=== PATIENT | male | born 1950 | race Caucasian/White ===

== ENCOUNTER 2023-08-11 16:52 | Inpatient (IN) | payer MEDICARE, SELFPAY ==
[2023-08-11 14:09] VITALS: BMI 21.8
[2023-08-11 14:11] VITALS: BP 162/89
--- NOTE | 2023-08-11 14:30 | ED.GENMED ---
History of Present Illness
General
Chief Complaint: Fall
Source: patient
Time Seen by Provider: 08/11/23 14:14
Travel History
Have you had any contact with someone who has COVID-19?: No
Do you have any symptoms of coronavirus? Fever > 100 degrees, chills, cough, shortness of breath, sore throat, loss of taste or smell, muscle aches, or headache?: No
History of Present Illness
History of Present Illness:
This patient is a 73-year-old male who states that he suffered a fall on Sunday, without preceding symptoms, a mechanical trip and fall. He landed on his left side and noted discomfort at the shoulder hip knee and ankle area on the left side. He
had trouble getting up on his own, and needed to wait until his aide arrived for him to be able to get up. He did not want to go to the hospital because he says 'I am stubborn'. He says that over the next few days he just 'took it easy', and
eventually his aches went away and he was able to get up and walk around as usual. Patient has a history of a CVA and typically uses a cane. Last night, patient was laying on the couch and slipped out landing on the floor. He estimates this was
approximately 1 AM. He was unable to get up on his own and lay on the floor all night until just prior to arrival when his brother was able to come to the house and alert medics. Patient states that he is very hungry. He denies headache. When
asked about neck pain he says it feels a little 'strained' from him moving about. He also notes discomfort at the left hip and thigh area. He denies visual changes, numbness, tingling, new weakness, chest pain, shortness of breath, nausea,
vomiting, abdominal pain, back pain. He states that he last urinated and defecated yesterday without change in color, blood. Patient drinks alcohol every day estimates at least 4-5 drinks of [place] whiskey, while he was on the floor he was able to
roll over and reach for the bottle and continue drinking and states that his last drink was this morning.
Past History
Past History
ED Past Medical History: HTN, Hypercholesterolemia and Other (CVA with residual left-sided weakness, numb tongue and mild left facial)
Patient has exhibited threatening behavior?: No
Social History
Tobacco: Smoker
Alcohol: Daily
Drug: None
Living: alone
Phy Exam
Physical Exam
Physical Exam:
GENERAL: Alert , in no apparent distress
EYE: pupils equal and reactive, no photophobia, EOMI
NECK: Supple, no significant adenopathy, no specific midline tenderness, trachea midline.
ENT: o/p clr, mm dry, no signs of head or facial injury, no jordan, no raccoon
CARDIAC: Regular rate and rhythm .
LUNGS: Clear breath sounds bilaterally, no acute respiratory distress, no wheezes/rales/rhonchi
ABDOMEN: Soft, without focal tenderness, no r/g, no cvat
NEUROLOGICAL: Alert and oriented, no focal neuro deficits but for residual left-sided weakness particularly left leg and mild left facial droop, fully oriented and making jokes with staff
SKIN: Warm and dry, skin intact.
MUSCULOSKELETAL: 1+ bilateral lower extremity edema, well perfused. There is pain in L inguinal area when ranging L hip, no ttp at hip, not shortened/externally rotated
PSYCH: Normal and appropriate interaction.
Course
Orders/Labs/Results
Orders:
Orders
08/11/23 14:19
Electrocardiogram (*1) Urgent
Reason for Study: Tachycardia
EKG- Treatment ONCE
08/11/23 14:30
Troponin I Urgent
08/11/23 14:32
Alcohol Urgent
CMP [Comprehensive Metabolic Panel] Urgent
CPK [Creatine Phosphokinase] Urgent
Complete Blood Count/With Diff Urgent
Folate Urgent
Comment: ADD ON
Magnesium Urgent
Vitamin B12 Urgent
08/11/23 14:35
CT Cervical Spine W/o Iv Contr Urgent
Comment:
Reason For Exam: fall
CT Head W/o Iv Contrast Stat
Comment:
Reason For Exam: fall
Cervical Collar- Treatment ONCE
Collar Type: Hard Cervical Collar
Hip, Left 2-3 Views [CR Hip - LT w/wo Pel 2-3 Vw*] Urgent
Comment:
Reason For Exam: pain, fall
Include a pelvis x-ray?: Yes
08/11/23 14:36
0.9% Sodium Chloride 500 ml [Nss] 500 ml IV BOLUS
08/11/23 14:37
Cardiac Monitoring- Treatment ONCE
Pulse Ox/cont/shift [RESP] Urgent
Quantity: 1
08/11/23 14:47
Lactic Acid Q4H
Comment: CANCEL 2nd LACTIC ACID IF 1st LACTIC ACID IS LESS THAN 2
Blood Culture Q30M
SPEEDY Source: Blood/Venous
Specimen Description:
08/11/23 15:34
Blood Culture Q30M
SPEEDY Source: Blood/Venous
Specimen Description:
08/11/23 16:04
Urinalysis Reflex To Culture Urgent
Date Specimen was Collected: 08/11/23
Time Specimen was Collected: 16:02
Urine Microscopic Reflex Cult Urgent
Urine Culture Urgent
SPEEDY Source: U
Specimen Description:
Date Specimen was Collected: 08/11/23
Time Specimen was Collected: 16:02
08/11/23 16:16
CT Lower Ext W/o Iv Cont Lt Urgent
Comment: MODIFIED TO CORRECT ORDER W/O CONTRAST
Reason For Exam: please assess L hip/acetabular area only
08/11/23 16:33
Add On- LAB Urgent
Tests Added?: mag , b12 ,folate
Acetaminophen [Tylenol] 650 mg PO NOW STA
08/11/23 16:34
Admit/Transfer Patient As Directed
Co-Sign Provider:
Level of Care: Inpatient admission
Assign to:: Telemetry
Physician / Group: idania mota
Diagnosis: fall w/ L acetabelum/pubic rami fx, etoh abuse
Reason for Telemetry: Arrhythmia
Date to Stop Telemetry: 08/14/23
Time to Stop Telemetry: 11:00
Reason for Hospitalization: fall w/ L acetabelum/pubic rami fx, etoh abuse
Expected length of stay greater than two midnights?: Yes
ELOS- Estimated Length of Stay in days: 4
I certify the patient meets the requirements for IP care: Yes
Code Status As Directed
Resuscitation Status: Do not resuscitate
Reached after discussion with pt or family/Healthcare POA: Yes
DNR Bracelet Application ONCE
08/11/23 16:38
ORTHOPEDIC CONSULT Routine
Consulting Provider: Richar Reyes
Was physician already notified: Yes
Reason for consult: left acetabelum/pubic rami fx
08/11/23 18:37
0.9% Sodium Chloride 1000 ml [Nss] 1,000 ml IV 60 mls/hr
0.9% Sodium Chloride [Nss (Preservative Free)] See Protocol IV PRN PRN
FOLic ACID [Folvite] 1 mg 0.9% Sodium Chloride 50 ml [Nss] 50 ml IV DAILYPRN
Lorazepam [Ativan] 1 mg IV Q1HPRN PRN
Lorazepam [Ativan] 1 mg PO Q2HPRN PRN
Lorazepam [Ativan] 2 mg IV Q1HPRN PRN
Nicotine [Nicoderm Transdermal] 21 mg TRANSDERM DAILY
Ondansetron Injectable [Zofran] 4 mg IV Q6HPRN PRN
Oxycodone [Roxicodone] 5 mg PO Q4HPRN PRN
08/11/23 18:37
Case Management Consult Once
Case Management Consult: Other
Comment: Substance abuse counseling
DIETARY CONSULT Routine
Reason for Consult: Nutrition support, possible refeeding guidelines
Urinalysis Routine
Date Specimen was Collected: 08/12/23
Time Specimen was Collected: 03:10
Urine Drug Abuse Screen Routine
Date Specimen was Collected: 08/12/23
Time Specimen was Collected: 03:10
Activity As Directed
Activity Level: Bedrest
MSAS SCORE As Directed
MSAS Score 0-4: Repeat MSAS every 2 hours until 0-4 for three consecutive assessments, then every 4 hours x 48
hours.
MSAS Score 5-7: For MILD withdrawl symptoms. Repeat MSAS and RASS every 2 hours
MSAS Score 8-11: For MODERATE withdrawal symptoms. Repeat MSAS and RASS every 1 hour. Consider ICU or IMU
level of care.
MSAS Score > 11: For SEVERE withdrawal symptoms. Repeat MSAS and RASS every 1 hour. Notify provider, consider
ICU level of care.
MSAS Additional Instructions: If no improvement or no decrease in score from severe to moderate within 12
hours, consult psychiatry
MSAS Notify Provider: Notify provider if patient requires more than 10 mg of Lorazepam in eight hour period.
Pneumatic Compression Sleeves As Directed
Type: Knee high
Vital Signs As Directed
Frequency: Per unit guidelines
Ot Eval And Treat Routine
Pt Eval And Treat Routine
Activity Level: Bedrest
DX Deep Vein Thrombosis Video Routine
08/11/23 19:50
B-Hydroxybutyrate Urgent
GGTP Urgent
PTT Urgent
Phosphorus Urgent
Prothrombin Time Urgent
08/11/23 20:00
Acetaminophen [Tylenol] 650 mg PO Q4HPRN PRN
Sennosides [Senokot] 8.6 mg PO BID
08/12/23 00:00
Thiamine Injection 200 mg IV Q8
08/12/23 06:58
Complete Blood Count/With Diff IN AM
Comprehensive Metabolic Panel IN AM
08/12/23 08:00
FOLic ACID [Folvite] 1 mg PO DAILY
08/14/23 11:00
DC Protocol for Telemetry ONCE
08/14/23 20:00
Thiamine HCl [Vitamin B1] 100 mg PO BID
Abnormal Lab Results
08/11/23 08/11/23
14:32 16:04
WBC 11.2 H 10^3/uL
(4.8-10.8)
RBC 3.38 L 10^6/uL
(4.70-6.10)
Hgb 11.1 L g/dL
(13.0-18.0)
Hct 31.1 L %
(39.0-52.0)
MCH 32.8 H pg
(27.0-31.0)
Absolute Neuts (auto) 8.6 H 10^3/uL
(1.4-6.5)
Absolute Monos (auto) 1.0 H 10^3/uL
(0.1-0.6)
Neutrophils % 76.7 H %
(42.2-75.2)
Lymphocytes % 12.6 L %
(20.5-51.1)
Sodium 129 L mmol/L
(135-145)
Total Bilirubin 1.5 H mg/dl
(0.2-1.3)
Creatine Kinase 410 H U/L
(55-170)
Vitamin B12 209 L pg/ml
(239-931)
Urine Ketones 2+ A
(Negative)
Urine Bilirubin 1+ A
(Negative)
Urine Urobilinogen 2+ A
(Neg - 1+)
Leukocyte Esterase Rfl Trace A
(Negative)
Urine Bacteria (Reflex) Moderate A
(Negative)
08/11/23 14:32
08/11/23 14:32
Vital Signs
Initial and Last Documented VS:
Initial Vital Signs
Temp Pulse Resp BP Pulse Ox
98.8 F 114 18 162/89 99
08/11/23 14:11 08/11/23 14:11 08/11/23 14:11 08/11/23 14:11 08/11/23 14:11
Last Documented Vital Signs
Temp Pulse Resp BP Pulse Ox
99.4 F 114 16 136/74 94
08/12/23 23:27 08/12/23 23:27 08/12/23 23:27 08/12/23 23:27 08/12/23 23:27
*Critical Care Note
Total Time (30-74mins, 75-104mins- exclusive of procedures): Not Applicable
Update Note
Update Note:
Patient presents to the Emergency Department with __fall and unable to get up
Number and Complexity of Problems Addressed at the Encounter
� Chronic conditions affecting care:
� Acute Exacerbation and/or Progression of Chronic Illness:
� Differential Diagnosis includes: But not limited to closed head injury, neck fracture, rhabdomyolysis, dehydration, electrolyte disorder, UTI, etc. etc.
Amount and/or Complexity of Data to be Reviewed and Analyzed
� I performed an independent evaluation of and my interpretation is:
EKG: Read by me, sinus tachycardia, normal axis, no acute ischemia
CT:
Xrays: read by me and radiologist...inferior ramus and acetabular fx, head and neck ct read by rads nad
Laboratory Studies:sl wbc elevation, mild anemia (?of chronic dz), mild hypoNa (?related to aud?). No acidosis to suggest aka., etoh none. CPK only mildly elevated, does not fit criteria of dx of rhabdo.
Other:
� Review of other/old records reveals: Patient was admitted to the hospital with a CVA and was not a tPA candidate at that time, noted to have residual left-sided weakness
� Clinical information was obtained by an independent historian:
� Prescriptions/Medications Considered but not given:
� Further testing considered but not performed:
Risk of Complications and/or Morbidity or Mortality of Patient Management
� Social determinants of health affecting care:
� Discussion with other providers (PCP, Hospitalists, Consultants, etc):
� Escalation of care including admission/observation vs risk of discharge considered: Patient does not exhibit signs or symptoms of withdrawal at this time but will need to be closely monitored while in the hospital given his
history of heavy alcohol use daily. Acetabular fracture noted, case discussed with Dr. Reyes from [facility], I have alerted him that we will be admitting the patient to the hospitalist given his complexity of medical history.
ED Attending Note
-
Portions of this chart may have been created with voice recognition software.� Occasional wrong word or��sound alike� substitutions may have occurred due to the inherent limitations of voice recognition software.
Discharge Plan
Departure
Patient Disposition: Admit
Date of Disposition: 08/11/23
Time of Disposition: 15:57
Admit to: Telemetry
Admit to doctor: idania
Presentation/result/management discussed w/ accepting /DO: loni
Condition: Fair
Discharge Problem:
Acetabular fracture, Alcohol use disorder, Fracture of ramus of left pubis, Dehydration
Interventions
Interventions:
*Risk Screen - Suicide Last Done: 08/11/23 19:32
*General Assessment Last Done: 08/11/23 14:20
*Neglect/Abuse Screening Last Done: 08/11/23 14:20
ED- Fall Risk Assessment Last Done: 08/11/23 14:20
*Nursing Disposition Last Done: 08/11/23 18:29
ED-Musculoskeletal Assessment Last Done: 08/11/23 14:20
ED- Neurological Assessment Last Done: 08/11/23 15:37
ED-Skin Assessment Last Done: 08/11/23 14:20
Discharge Date and Time
Discharge Date/Time: 08/11/23 18:30
[2023-08-11 14:40] LABS: % Basophils 0.3 % (0-2); % Eosinophils 0.9 % (0-6); % Immature Granulocytes 0.4 % (0-0.5); % Lymphocytes 12.6 % (20.5-51.1); % Monocytes 9.1 % (1.7-9.3); % Neutrophils 76.7 % (42.2-75.2); Absolute Eosinophils 0.1 10^3/uL (0-0.7); Absolute Lymphocytes 1.4 10^3/uL (1.2-3.4); Absolute Neutrophils 8.6 10^3/uL (1.4-6.5); Hematocrit 31.1 % (39.0-52.0); Hemoglobin 11.1 g/dL (13.0-18.0); Mean Corp Hgb Conc. 35.7 g/dL (33.0-37.0); Mean Corpuscular Hgb 32.8 pg (27.0-31.0); Mean Platelet Volume 9.2 fL (7.4-10.4); Nucleated Red Blood Cells % 0 % (-); Platelet Count 360 10^3/uL (130-400); Red Blood Cell Count 3.38 10^6/uL (4.70-6.10); Red Cell Dist. Width 13.5 % (11.5-14.5); White Blood Cell Count 11.2 10^3/uL (4.8-10.8)
[2023-08-11 14:52] LABS: ALT (SGPT) 26 U/L (0-50); AST (SGOT) 54 U/L (17-59); Albumin 3.5 g/dl (3.5-5.0); Alcohol None Detected; Alkaline Phosphatase 93 U/L (38-126); Blood Urea Nitrogen 12 mg/dl (9-20); Calcium 8.9 mg/dl (8.4-10.2); Carbon Dioxide 22 mmol/L (22-30); Chloride 100 mmol/L (98-107); Creatine Phosphokinase 410 U/L (55-170); Estimated Creatinine Clearance 86 ml/min; Glucose 91 mg/dl (70-99); Potassium 3.9 mmol/L (3.5-5.1); Sodium 129 mmol/L (135-145); Total Bilirubin 1.5 mg/dl (0.2-1.3); Total Protein 6.3 g/dl (6.3-8.2); eGFR > 60.00
[2023-08-11 15:12] LABS: Lactic Acid 1.1 mmol/L (0.7-2.0)
[2023-08-11 15:25] LABS: Troponin I < 0.012 ng/ml
[2023-08-11 15:31] VITALS: BP 141/75
[2023-08-11] MEDS: NSS 500 IV (15:35)
[2023-08-11 16:00] VITALS: BP 151/81
--- NOTE | 2023-08-11 16:07 | HPS.HSE ---
Addendum entered and electronically signed by Justice Salas MD 08/12/23 11:38:
I saw and examined the patient.
The TRAY WORKER or PA's note was reviewed and I agree with the note.
Comment: 73-year-old male lives at home, history of alcohol abuse, CVA, hypertension, nicotine abuse, 5 drinks per day presents for left hip pain.� Patient had mechanical fall about 1 week ago while walking up the stairs.� Patient continued to walk,
baseline uses cane.� Patient had worsening pain that prompted hospital evaluation.� Last drink this morning, drinks Roni a sherry chintan daily, proxy 5 drinks per day as per patient.� Imaging showing fractures of the medial wall of the left
acetabulum and the left inferior pelvic ramus.� No head strike upon fall as per patient.� CT head done here no acute intracranial abnormality.� CVT's cervical spine unremarkable for acute pathology.� Patient tremorous and anxious upon examination.�
Heart rate 117, blood pressure 151/81.� Afebrile.� Evidence of hyponatremia on labs.� No urinary symptoms.
Plan�IV fluids, CIWA protocol, Ativan as needed.� Orthopedic consult.� PT/OT monitor BMP, CBC
Original Note:
Family Physician
-
Family Physician: NOT KNOW UNKNOWN - PT DOES
Chief Complaint
-
Fall, left hip pain
History of Present Illness
73-year-old male from home where he lives alone in his house that has a main level with bedroom bathroom and kitchen. He states he tripped over a step and fell into his living room 5 days ago he came in today due to persistent pain in his left hip
area. He reports he was not using his cane at the time. He denies LOC, headache or neck pain. He denies chest pain, palpitations, shortness breath, cough, abdominal pain, nausea, vomiting, diarrhea, urinary symptoms, fever, chills. He states he
does not drive but his neighbor goes grocery shopping for him. He was 3 years ago he states. He drinks 4-5 drinks of whiskey and sherry chintan daily with no intention of stopping. He reports his last drink of 1-1/2 drinks was this a.m. at
9:00. He reports he had a prior physician in [place] which she stopped seeing approximately a little less than 1 year ago due to not being able to drive. He states he has a new physician assigned to him in [place] but has not seen him yet. He
stopped all of his medication approximately 1 year ago due to no PCP
The patient has a past medical history alcohol abuse, HTN, nicotine abuse, CVA history with left-sided weakness and numbness to tip of tongue
Medical History
Past Medical History
Past Medical History: Reports Other
Additional Past Medical History:
alcohol abuse Daily 4-5 whiskey and sherry chintan
HTN
nicotine abuse
CVA history with left-sided weakness and numbness to tip of tongue
Chronic ambulatory dysfunction uses cane
Past Surgical History: Reports Other
Additional Past Surgical History:
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
Cartilage repair bilateral knees via arthroscopy
Social History
Tobacco: Smoker (60 years 1 pack/day)
Alcohol: Daily (4-5 whiskey and sherry chintan)
Drug: None
Personal: (3 years of breast cancer)
Living: Alone
Employment: Retired
Family History
Family History: Other (States parents of old age in their 80s sister is he is unsure why)
Allergies / Home Medications
Allergies reflects when Allergies were last updated in [employer].
Home Medications with original date entered in [facility]
Allergy/Medication List:
Allergies
Allergy/AdvReac Type Severity Reaction Status Date / Time
ciprofloxacin [From Cipro] Allergy hands red Verified 08/11/23 14:15
and itching
Home Medications
[place] Xl Supplement 2 tab PO BID 08/11/23
acetaminophen 500 mg tablet (Tylenol Extra Strength) 1,000 mg PO TIDPRN PRN mild pain 08/11/23
turmeric 400 mg capsule 400 mg PO DAILY 08/11/23
Review of Systems
-
History Source: Patient
A 12 point ROS was completed and negative except as noted: Yes
Constitutional: Denies Fever or Fatigue
EENT: Denies Sore Throat or Runny Nose
Respiratory: Denies Cough or Trouble Breathing
Cardiac: Denies Chest Pain, Palpitations or Syncope
Abdomen/GI: Denies Abdominal Pain, Nausea, Vomiting, Diarrhea, Constipated, Bloody Stools or Black Stools
: Denies Dysuria, Frequency, Flank Pain, Incontinence, Difficulty Voiding or Urgency
Musculoskeletal: Reports Joint Pain (Left hip/thigh); Denies Joint Swelling or Edema
Skin: Denies Itching or Rash
Neurological: Denies Dizzy, Headache, Weakness or Numbness
Endocrine: Reports No Symptoms
Hematologic/Lymphatic: Reports No Symptoms
Psych: Reports Calm
Physical Exam
Vital Signs
Vital Signs
Temp Pulse Resp BP Pulse Ox
98.8 F 106 19 141/75 100
08/11/23 14:11 08/11/23 15:31 08/11/23 15:31 08/11/23 15:31 08/11/23 15:31
Physical Exam
General: Conversant, Pain and Other (Unkept appearance); No Fever or Chills
HEENT: NormoCephalic, Anicteric, PERRLA, Cos Cob Conjunctivae and Neck Nontender
Respiratory: Clear; No Wheezes, Rales or Rhonchi
Cardiac: S1/S2 and Regular Rhythm; No Murmur, Rub, Gallop or Peripheral Edema
Breast: Deferred by me
GI: Soft, Non Tender, Non Distended, Normal Bowel Sounds and No Hepatosplenomegaly
Rectal: Deferred by Provider
Genito-urinary: Deferred by me
Musculoskeletal: No Clubbing, No Cyanosis, Edema, Left Lower Extremity (Trace to +1 pedal edema, +2 dorsal pedal pulse intact, sensation intact, tenderness to left lateral hip no obvious edema or ecchymosis) and Edema, Right Lower Extremity (Trace
to +1 pedal edema, ); No Edema, Left Upper Extremity or Edema, Right Upper Extremity
Skin: Warm and Dry; No Rash
Neuro: AO x 3 and Nonfocal/grossly intact; No No Sensory Deficits, Slurred Speech or Facial Droop
Psych: Calm (To easily agitated when questioned about social history)
Laboratory Results
-
08/11/23 14:32
08/11/23 14:32
Laboratory Results
Lactic Acid 1.1 mmol/L (0.7-2.0) 08/11/23 14:47
Total Bilirubin 1.5 mg/dl (0.2-1.3) H 08/11/23 14:32
AST 54 U/L (17-59) 08/11/23 14:32
ALT 26 U/L (0-50) 08/11/23 14:32
Alkaline Phosphatase 93 U/L (38-126) 08/11/23 14:32
Troponin I < 0.012 ng/ml 08/11/23 14:30
Impression/Plan
-
impression/plan:
Admit to telemetry
#Mechanical fall with left acetabulum/left inferior pubic ramus fracture
Chronic ambulatory dysfunction uses cane
-Pain control, bowel regimen
-Consult Sayda Reyes aware
-Pt/Ot / case mgmt consult (patient lives alone 3 steps into home has main level bedroom bathroom and kitchen)
Left hip pelvis x-ray: Fractures of the medial wall of the left acetabulum and left inferior pubic ramus
CT head: No acute intracranial abnormality
CT cervical spine: No acute abnormality severe disc space narrowing C5-C6 and C6-C7
#Alcohol abuse possible potential withdrawal
#Daily alcohol use
Current EtOH negative
Start MSAS screen with protocol thiamine, folate
-Check magnesium level
- Pt has no interest in Rehab as he does not feel he has a problem and doesnt careif he dies or develops liver disease
he refuses psych eval and is not currently suicidal or homocidal
#Normocytic anemia
Hgb 11.1, MCV 92
Check B12, folate
#HTN�benign
141/75
pt stopped taking amlodipine last year as he cannot drive to his dr
#Active smoker
1 ppd X 60 years
-cessation advised
- nicotine patch 21mg ordered
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
-Stopped his aspirin, statin due to no PCP
DVT prophylaxis
SCDs
DNR per patient with attending present
[2023-08-11 16:16] LABS: Urine Albumin Trace (Neg - Trace); Urine Bilirubin 1+ (Negative); Urine Character Clear (Clear); Urine Color Yellow; Urine Glucose Negative (Negative); Urine Ketone 2+ (Negative); Urine Leukocyte Trace (Negative); Urine Nitrite Negative (Negative); Urine Occult Blood Negative (Negative); Urine Urobilinogen 2+ (Neg - 1+)
[2023-08-11 16:25] LABS: Urine Bacteria Moderate (Negative); Urine Red Blood Cell 0-2 /HPF (0-2)
--- NOTE | 2023-08-11 16:28 | W.PN.UPDATE ---
Update Note
Progress Note Update
This note serves as supplemental to history physical written by RADHA. 73-year-old male lives at home, history of alcohol abuse, CVA, hypertension, nicotine abuse, 5 drinks per day presents for left hip pain. Patient had mechanical fall about 1 week
ago while walking up the stairs. Patient continued to walk, baseline uses cane. Patient had worsening pain that prompted hospital evaluation. Last drink this morning, drinks Roni a sherry chintan daily, proxy 5 drinks per day as per patient.
Imaging showing fractures of the medial wall of the left acetabulum and the left inferior pelvic ramus. No head strike upon fall as per patient. CT head done here no acute intracranial abnormality. CVT's cervical spine unremarkable for acute
pathology. Patient tremorous and anxious upon examination. Heart rate 117, blood pressure 151/81. Afebrile. Evidence of hyponatremia on labs. No urinary symptoms.
Plan�IV fluids, CIWA protocol, Ativan as needed. Orthopedic consult. PT/OT monitor BMP, CBC
[2023-08-11] MEDS: TYLENOL 650 MG PO (16:44)
[2023-08-11 17:00] VITALS: BP 133/64
[2023-08-11 17:09] LABS: Magnesium 2.2 mg/dl (1.6-2.3)
[2023-08-11 18:16] LABS: Folate 10.3 ng/ml (2.76-20); Vitamin B12 209 pg/ml (239-931)
--- NOTE | 2023-08-11 18:33 | W.PN.UPDATE ---
Update Note
Progress Note Update
Patient accepted at [facility] by Ortho surgery Dr. Nestor Rubin, there is currently no bed available tonight but will be transferred in the a.m. 08/12/2023
-Dr. Reyes from Ortho here will help arrange transfer and will see the patient in the a.m. for his evaluation
[2023-08-11 19:20] VITALS: BP 134/83
[2023-08-11] MEDS: NSS 1000 IV (19:24)
[2023-08-11] MEDS: NICODERM TRANSDERMAL 21 MG TRANSDERM (19:26)
[2023-08-11] MEDS: SENOKOT 8.59999999999999964 MG PO (19:26)
[2023-08-11 20:21] LABS: INR 1.01; PT 13.2 Sec (11.4-14.6)
[2023-08-11] MEDS: LOPRESSOR 5 MG IV (20:21)
[2023-08-11 20:22] LABS: APTT 35.7 Sec (23.4-35.0)
[2023-08-11 20:31] LABS: GGTP 22 U/L (15-73)
[2023-08-11 20:38] LABS: B-Hydroxybutyrate 1.97 mmol/L (0.02-0.27)
[2023-08-11] MEDS: ROXICODONE 5 MG PO (22:41)
[2023-08-11] MEDS: THIAMINE INJECTION 200 MG IV (22:44)
[2023-08-11 23:49] VITALS: BP 121/60
[2023-08-12 03:19] LABS: Urine Albumin Trace (Neg - Trace); Urine Bilirubin 1+ (Negative); Urine Character Clear (Clear); Urine Color Amber; Urine Glucose Negative (Negative); Urine Ketone 2+ (Negative); Urine Leukocyte Trace (Negative); Urine Nitrite Negative (Negative); Urine Occult Blood Negative (Negative); Urine Urobilinogen 2+ (Neg - 1+)
[2023-08-12 03:29] LABS: Amphetamines Negative (Negative); Barbiturates Negative (Negative); Benzodiazepines Negative (Negative); Buprenorphine Negative (Negative); Cocaine Negative (Negative); Marijuana Negative (Negative); Methadone Negative (Negative); Methamphetamines Negative (Negative); Opiates Negative (Negative); Phencyclidine Negative (Negative); Tricyclic Antidepressants Negative (Negative)
[2023-08-12 03:46] LABS: Fentanyl, Urine Negative (Negative)
[2023-08-12 03:48] LABS: Urine Squamous Cell 0-2 /LPF (Few)
[2023-08-12 03:49] LABS: Urine Red Blood Cell None Seen /HPF (0-2); Urine White Cell 0-2 /HPF (0-5)
[2023-08-12 03:55] VITALS: BP 141/75
[2023-08-12 07:15] VITALS: BP 148/83
[2023-08-12 07:25] LABS: Glucose - Point of Care 98 mg/dl (70-99)
[2023-08-12 07:48] LABS: % Basophils 0.4 % (0-2); % Eosinophils 1.1 % (0-6); % Immature Granulocytes 0.4 % (0-0.5); % Lymphocytes 11.5 % (20.5-51.1); % Monocytes 10.5 % (1.7-9.3); % Neutrophils 76.1 % (42.2-75.2); Absolute Eosinophils 0.1 10^3/uL (0-0.7); Absolute Lymphocytes 1.2 10^3/uL (1.2-3.4); Absolute Monocytes 1.1 10^3/uL (0.1-0.6); Absolute Neutrophils 8.2 10^3/uL (1.4-6.5); Hematocrit 28.1 % (39.0-52.0); Hemoglobin 9.9 g/dL (13.0-18.0); Mean Corp Hgb Conc. 35.2 g/dL (33.0-37.0); Mean Corpuscular Hgb 33.7 pg (27.0-31.0); Mean Corpuscular Volume 95.6 fL (80.0-94.0); Mean Platelet Volume 9.6 fL (7.4-10.4); Nucleated Red Blood Cells % 0 % (-); Platelet Count 336 10^3/uL (130-400); Red Blood Cell Count 2.94 10^6/uL (4.70-6.10); Red Cell Dist. Width 13.6 % (11.5-14.5); White Blood Cell Count 10.8 10^3/uL (4.8-10.8)
[2023-08-12 08:05] LABS: ALT (SGPT) 18 U/L (0-50); AST (SGOT) 32 U/L (17-59); Albumin 2.6 g/dl (3.5-5.0); Alkaline Phosphatase 78 U/L (38-126); Blood Urea Nitrogen 12 mg/dl (9-20); Calcium 8.4 mg/dl (8.4-10.2); Carbon Dioxide 22 mmol/L (22-30); Chloride 101 mmol/L (98-107); Estimated Creatinine Clearance 86 ml/min; Glucose 100 mg/dl (70-99); Potassium 3.8 mmol/L (3.5-5.1); Sodium 130 mmol/L (135-145); Total Bilirubin 1.3 mg/dl (0.2-1.3); Total Protein 5.3 g/dl (6.3-8.2); eGFR > 60.00
--- NOTE | 2023-08-12 08:33 | W.PN.UPDATE ---
Update Note
Progress Note Update
73-year-old gentleman with alcohol use disorder and [id number] history of smoking who sustained a fall 6 days ago. Of significance, he has a history of mild left hemiplegia secondary to a CVA x 2 sustained approximately 5 years ago. Patient had
continued pain about his left hip and presented to [facility]'s emergency room yesterday. Radiographs and CT scan confirmed a comminuted left acetabular fracture with anterior column and medial displacement with a mild protrusio deformity.
There was also an associated inferior pubic ramus fracture. This case was discussed with Dr. Nestor Rubin, an orthopedic traumatologist at the [facility]. This patient would likely benefit from surgical fixation of his acetabular
fracture. This procedure is not typically performed at [facility]. Dr. Rubin has agreed to accept the patient in transfer and the transfer process has been put in motion. A full consultation has been dictated into [facility].
[2023-08-12] MEDS: THIAMINE INJECTION 200 MG IV ×3 (08:38→22:52)
[2023-08-12] MEDS: FOLVITE 1 MG PO (08:38)
[2023-08-12] MEDS: SENOKOT 8.59999999999999964 MG PO ×2 (08:38→20:45)
[2023-08-12] MEDS: NICODERM TRANSDERMAL 21 MG TRANSDERM (08:38)
[2023-08-12] MEDS: NSS 1000 IV (08:43)
[2023-08-12 11:10] VITALS: BP 140/77
[2023-08-12 11:32] LABS: Glucose - Point of Care 160 mg/dl (70-99)
--- NOTE | 2023-08-12 11:38 | W.PN.HOSP.TC ---
Addendum entered and electronically signed by Justice Salas MD 08/12/23 15:33:
[id number]
Original Note:
Today's Communication/Plan
-
asa, statin
hsq
transfer to [facility]
etoh withdrawal protocol, MSAS
Assessment / Plan
Assessment / Plan
Physical Exam
General: Conversant, Pain and Other (Unkept appearance); No Fever or Chills
HEENT: NormoCephalic, Anicteric, PERRLA, [place] Conjunctivae and Neck Nontender
Respiratory: Clear; No Wheezes, Rales or Rhonchi
Cardiac: S1/S2 and Regular Rhythm; No Murmur, Rub, Gallop or Peripheral Edema
Breast: Deferred by me
GI: Soft, Non Tender, Non Distended, Normal Bowel Sounds and No Hepatosplenomegaly
Rectal: Deferred by Provider
Genito-urinary: Deferred by me
Musculoskeletal: No Clubbing, No Cyanosis, Edema, Left Lower Extremity (Trace to +1 pedal edema, +2 dorsal pedal pulse intact, sensation intact, tenderness to left lateral hip no obvious edema or ecchymosis) and Edema, Right Lower Extremity (Trace
to +1 pedal edema, ); No Edema, Left Upper Extremity or Edema, Right Upper Extremity
Skin: Warm and Dry; No Rash
Neuro: AO x 3 and Nonfocal/grossly intact; No No Sensory Deficits, Slurred Speech or Facial Droop
Psych: Calm (To easily agitated when questioned about social history)
#Mechanical fall with left acetabulum/left inferior pubic ramus fracture
#Chronic ambulatory dysfunction uses cane
-Pain control, bowel regimen
-Consult Ortho�DrBoby Reyes aware
-Pt/Ot / case mgmt consult (patient lives alone 3 steps into home has main level bedroom bathroom and kitchen)
-could benefit from surgical fixation of his acetabular fracture.
-Plan to transfer to [facility]- Dr. Rubin
#Alcohol abuse possible potential withdrawal
#Daily alcohol use, 5 -6 drinks per day
Start MSAS screen with protocol thiamine, folate
- Pt has no interest in EtoH Rehab as he does not feel he has a problem and doesnt care if he dies or develops liver disease
�he refuses psych eval and is not currently suicidal or homocidal
#Hyponatremia
-mild
-most likely 2/2 to etoh abuse
-Cont IVF
#Normocytic anemia
Hgb 11.1, MCV 92
Check B12, folate
#HTN�benign
141/75
�pt stopped taking amlodipine last year as he cannot drive to his dr
#Active smoker
1 ppd X 60 years
-cessation advised
- nicotine patch 21mg ordered
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
-Stopped his aspirin, statin due to no PCP; at this point due to high risk of bleeding, with falls and etoh - will defer to PCP, neurology outpatient
-start statin, asa inpatient - can decide if want to continue once dcing
DVT prophylaxis
hsq
DNR/DNI
More than 30 minutes spent in discharge including
Final examination of the patient
Summarizing hospital stay
Instructions for continuing care to all relevant caregivers
Preparation of discharge records, prescriptions, and referral forms
Total time spent (35 in minutes):
Anticipated Discharge: Today
Subjective/Interval History
-
Date of Service: August 12, 2023
no acute events; planning of transfer to [facility]
Objective Data
-
Labs:
Laboratory Results
08/12/23
06:58
WBC 10.8
Hgb 9.9 L
Hct 28.1 L
Plt Count 336
Sodium 130 L
Potassium 3.8
Chloride 101
Carbon Dioxide 22
BUN 12
Creatinine 0.7
Glucose 100 H
Calcium 8.4
Total Bilirubin 1.3
AST 32
ALT 18
Alkaline Phosphatase 78
Vital Signs:
Vital Signs
Temp Pulse Resp BP Pulse Ox
99.4 F 112 14 148/83 95
08/12/23 07:15 08/12/23 07:15 08/12/23 07:15 08/12/23 07:15 08/12/23 07:15
I&O
08/11/23 08/12/23 08/13/23
06:59 06:59 06:59
Intake Total 1080 / 1080
Balance 1080 / 1080
Review of Systems
-
History Source: Patient
All other systems: Not reviewed unless documented
Data Reviewed
-
Diagnostic Radiology: Image personally visualized and interpreted and Report Reviewed by me
CT Scan: Image personally visualized and interpreted and Report Reviewed by me
Labs: Labs Reviewed by me
--- NOTE | 2023-08-12 11:44 | W.DS.TRANS ---
DC Summary - [employer]
-
Discharge Instructions:
Instructions:
Stand-Alone Forms:
Changes to Home Medications: Yes
Discharge Medications:
DC Medications w/original date entered in [employer]
Reeders Xl Supplement 2 tab PO BID Supplement 08/11/23
acetaminophen 500 mg tablet (Tylenol Extra Strength) 1,000 mg PO TIDPRN PRN mild pain 08/11/23
turmeric 400 mg capsule 400 mg PO DAILY Supplement 08/11/23
Home Medication Changes
Start Aspirin 81mg po daily, atorvastatin 40mg daily
Pending Results: No
[2023-08-12] MEDS: TYLENOL 650 MG PO ×2 (12:14→23:00)
[2023-08-12] MEDS: LOW STRENGTH ASPIRIN 81 MG PO (12:15)
--- NOTE | 2023-08-12 15:20 | CM ---
Addendum entered by Sally Owusu 08/12/23 16:14:
Patient seen bedside. [facility], denies DME, VN, or SNF. Patient reports he is unsure who is PCP is as he has not seen him yet, confirms pharmacy is [facility] in [place]. CM will continue to follow for discharge
planning needs.
Plan; transfer to [facility] when bed available.
Original Note:
CM reviewed chart, plan for patient to transfer to [facility]. CM will continue to follow for discharge planning needs.
Plan; transfer to [facility] when bed available.
[2023-08-12 15:50] VITALS: BP 117/62
[2023-08-12] MEDS: HEPARIN 5000 UNITS SC ×2 (17:08→22:51)
[2023-08-12] MEDS: LIPITOR 40 MG PO (17:08)
--- NOTE | 2023-08-12 19:32 | PTCARENOTE ---
Report given to RN (Leigh) at [facility] [phone]. Patient is to be transferred to [facility] at [address] [place] [address]. Dr Nestor Rubin Service.
[2023-08-12 20:00] VITALS: BP 137/75
[2023-08-12] MEDS: FLUSH (NSS) 2 FLUSH IV (22:53)
[2023-08-12 23:27] VITALS: BP 136/74
--- NOTE | 2023-08-13 | PTCARENOTE ---
Pt transferred via ambulance to [facility] as planned.
--- NOTE | 2023-09-07 11:27 | CM ---
Addendum entered by Catie Parrish RN 09/07/23 11:42:
Liliam spoke with See from [facility]. He stated that patient has been sitting in his chair for the last 24 hours. He has soiled himself. Patient is also very lethargic, but able to be aroused. LILIAM advised patient be brought to
ED for evaluation.
Original Note:
LILIAM received call from Nanci at [facility]. Patient was recently discharged from [facility] and was referred to [facility] . Nanci from [facility] received a call from patient's nephew stating patient is not able to care for himself at home. [place] Police
were called out and to them home. As per nephew, a 'social service manager' came to the home and evaluated patient stating he was safe to be home alone. As per Nanci, plan for See to meet with nephew and patient to discuss plan.
LILIAM advised if patient appears unwell then he should be evaluated.
LIILAM will follow as needed.
== END 2023-08-13 | disposition short-term general hospital (02) | DRG 536 ==
LOC: 4 WEST ACU 16:52
PROVIDERS: Clinical Nurse Specialist Family Health; ADMITTING PHYSICIAN Internal Medicine; CONSULT PHYSICIAN Specialist; EMERGENCY PHYSICIAN Emergency Medicine
DX: S32.592A Other specified fracture of left pubis, initial encounter for closed fracture (principal); I69.354 Hemiplegia and hemiparesis following cerebral infarction affecting left non-dominant side; E87.1 Hypo-osmolality and hyponatremia; I10 Essential (primary) hypertension; W10.9XXA Fall (on) (from) unspecified stairs and steps, initial encounter; F10.10 Alcohol abuse, uncomplicated; F17.200 Nicotine dependence, unspecified, uncomplicated; D64.9 Anemia, unspecified; Z66 Do not resuscitate
CPT/HCPCS: 70450; 72125; 73502; 73700; 80053; 80306; 80307; 81003; 81015; 82010; 82077; 82550; 82607; 82746; 82962; 82977; 83605; 83735; 84100; 84484; 85025; 85610; 85730; 87040; 87086; 93005; 94760; 99285

== ENCOUNTER 2023-09-07 12:47 | Emergency (ER) | payer MEDICARE, SELFPAY ==
[2023-09-07 12:49] VITALS: BP 103/73
[2023-09-07 12:56] VITALS: BMI 21.2
--- NOTE | 2023-09-07 13:05 | CM ---
Addendum entered by Catie Parrish RN 09/07/23 15:42:
Patient's nephew Efrain was updated. Efrain stated that patient was still weak and unable to ambulate when discharged from [facility]. Patient was insisting on leaving. Patient does NOT have a PCP at this time.
Efrain cell phone is
[phone]
Addendum entered by Catie Parrish RN 09/07/23 14:55:
[facility]
PHONE
[phone]

Addendum entered by Catie Parrish RN 09/07/23 14:36:
CM left message for Nephew to update.
Addendum entered by Catie Parrish RN 09/07/23 14:33:
CM updated bedside RN, ED ULTRASONIC CLEANER and patient that he's been accepted back to [facility].
Addendum entered by Catie Parrish RN 09/07/23 14:19:
[facility] can accept back if patient is medically cleared.
Addendum entered by Catie Parrish RN 09/07/23 13:46:
CM sent preliminary referral via [facility] to [facility].
Addendum entered by Catie Parrish RN 09/07/23 13:41:
CM left message for Social Work at [facility].
Addendum entered by Catie Parrish RN 09/07/23 13:16:
CM left message for admissions at [facility].
Addendum entered by Catie Parrish RN 09/07/23 13:13:
Nanci from [facility] further advised that patient does not have a PCP.
Original Note:
Liliam spoke with See from [facility]. He stated that patient has been sitting in his chair for the last 24 hours. He has soiled himself. Patient is also very lethargic, but able to be aroused. CM advised patient be brought to
ED for evaluation.
Original Note:
LILIAM received call from Nanci at [facility]. Patient was recently discharged from [facility] and was referred to [facility] . Nanci from [facility] received a call from patient's nephew stating patient is not able to care for himself at home. [place] Police
were called out and to them home. As per nephew, a 'social media job titles' came to the home and evaluated patient stating he was safe to be home alone. As per Nanci, plan for See to meet with nephew and patient to discuss plan.
LILIAM advised if patient appears unwell then he should be evaluated.
CM will follow as needed.
--- NOTE | 2023-09-07 14:16 | ED.GENMED ---
History of Present Illness
General
Chief Complaint: Social Service Referral
Source: patient
Exam Limitations: none
Time Seen by Provider: 09/07/23 13:48
Nursing documentation reviewed up to this point in time: agreed with
Travel History
Have you had any contact with someone who has COVID-19?: No
Do you have any symptoms of coronavirus? Fever > 100 degrees, chills, cough, shortness of breath, sore throat, loss of taste or smell, muscle aches, or headache?: No
History of Present Illness
History of Present Illness:
Patient to ED from home due to inability to care for self. Sustained a fracture to his left hip last month. He had surgery at [facility] and then was transferred to rehab [place]. He was discharged home yesterday. He lives alone. Nephew
transported him home but apparently had to carry patient into home. He placed pt in chair and patient was unable to get self out of chair at home. He spent the night in chair, soiled self. Brought to ED for placement.
Past History
Past History
ED Past Medical History: GERD, HTN, Hypercholesterolemia and Other (CVA with residual left-sided weakness, numb tongue and mild left facial)
ED Past Surgical History: None
Patient has exhibited threatening behavior?: No
Social History
Tobacco: Smoker
Alcohol: Daily
Drug: None
Personal:
Living: alone
Review of Systems
Review of Systems
Allergies reviewed?: Yes
All Other Systems: ROS reviewed and negative except as documented in HPI and ROS
Constitutional: Reports fatigue
EENT: Reports no symptoms
Respiratory: Reports no symptoms
Cardiac: Reports no symptoms
ABD/GI: Reports no symptoms
Musculoskeletal: Reports joint pain (left hip pain s/p orif )
Skin: Reports no symptoms
Neurological: Reports weakness
Psychiatric: Reports no symptoms
Phy Exam
General Physical Exam
General Presentation: well appearing and no apparent distress
General age: appears stated age
General Skin: warm and dry
General Habitus: normal
Cardiovascular Exam
Cardiovascular Exam: regular rate/rhythm and no edema
Pulmonary Exam
Pulmonary Exam: lungs clear and no respiratory distress
Gastrointestinal Exam
Gastrointestinal Exam: normal bowel sounds, non tender, soft and no organomegaly
Musculoskeletal Exam
Musculoskeletal Exam: full ROM and neuro vasc intact
Skin Exam
Skin Exam: normal color, warm/dry and no rash
Psychiatric Exam
Psychiatric Exam: normal mood/affect
Course
Orders/Labs/Results
Orders:
Orders
09/07/23 12:59
Case Management Consult ONCE
Case Management Consult: [facility] Placement
Requested By:: NURSING
Comment: L hip surgery 1 month ago at [facility] s/p fall. [facility]. D/C from
rehab yesterday, but was unable to walk at the time. Nephew had to carry him into his house
and placed him in a chair. When he came to check on him today he had not moved. Pt lives
alone and unable to care for ADLs.
09/07/23 14:12
Complete Blood Count/With Diff Urgent
Comprehensive Metabolic Panel Urgent
09/07/23 14:20
Oxycodone [Roxicodone] 5 mg PO NOW STA
09/07/23 14:41
0.9% Sodium Chloride 1000 ml [Nss] 1,000 ml IV BOLUS
09/07/23 16:09
Urinalysis Reflex To Culture Urgent
Date Specimen was Collected: 09/07/23
Time Specimen was Collected: 14:11
Urine Microscopic Reflex Cult Urgent
Urine Culture Urgent
SPEEDY Source: U
Specimen Description:
Date Specimen was Collected: 09/07/23
Time Specimen was Collected: 14:11
Abnormal Lab Results
09/07/23 09/07/23
14:12 16:09
WBC 10.9 H 10^3/uL
(4.8-10.8)
RBC 3.82 L 10^6/uL
(4.70-6.10)
Hgb 11.7 L g/dL
(13.0-18.0)
Hct 34.4 L %
(39.0-52.0)
RDW 14.9 H %
(11.5-14.5)
Abs Immat Gran (auto) 0.1 H 10^3/uL
(0-0.05)
Absolute Neuts (auto) 9.4 H 10^3/uL
(1.4-6.5)
Absolute Lymphs (auto) 0.6 L 10^3/uL
(1.2-3.4)
Absolute Monos (auto) 0.8 H 10^3/uL
(0.1-0.6)
Neutrophils % 86.5 H %
(42.2-75.2)
Lymphocytes % 5.7 L %
(20.5-51.1)
Sodium 128 L mmol/L
(135-145)
Chloride 94 L mmol/L
(98-107)
Glucose 152 H mg/dl
(70-99)
Albumin 3.4 L g/dl
(3.5-5.0)
Urine Ketones Trace A
(Negative)
Leukocyte Esterase Rfl Trace A
(Negative)
Urine Bacteria (Reflex) Moderate A
(Negative)
09/07/23 14:12
09/07/23 14:12
Vital Signs
Initial and Last Documented VS:
Initial Vital Signs
Temp Pulse Resp BP Pulse Ox
98.3 F 124 18 103/73 100
09/07/23 12:49 09/07/23 12:49 09/07/23 12:49 09/07/23 12:49 09/07/23 12:49
Last Documented Vital Signs
Temp Pulse Resp BP Pulse Ox
98.3 F 124 18 103/73 100
09/07/23 12:49 09/07/23 12:49 09/07/23 12:49 09/07/23 12:49 09/07/23 12:49
*Critical Care Note
Total Time (30-74mins, 75-104mins- exclusive of procedures): Not Applicable
ED Attending Note
-
Portions of this chart may have been created with voice recognition software.� Occasional wrong word or��sound alike� substitutions may have occurred due to the inherent limitations of voice recognition software.
Discharge Plan
Departure
Patient Disposition: [facility]/SNF
Date of Disposition: 09/07/23
Time of Disposition: 17:05
Discharge Problem:
Ambulatory dysfunction
Instructions: Weakness ED
Prescriptions:
No Action
No Current Medications
0
Referrals:
NONE,* [Family Provider] -
Interventions
Interventions:
*Risk Screen - Suicide Last Done: 09/07/23 12:49
*General Assessment Last Done: 09/07/23 12:49
*Neglect/Abuse Screening Last Done: 09/07/23 12:49
ED- Fall Risk Assessment Last Done: 09/07/23 17:05
*ED COVID-19 Vaccine History Last Done: 09/07/23 17:05
*Nursing Disposition Last Done: 09/07/23 17:05
ED-Psychological Assessment Last Done: 09/07/23 15:26
Discharge Date and Time
Discharge Date/Time: 09/07/23 17:16
[2023-09-07 14:24] LABS: % Basophils 0.3 % (0-2); % Immature Granulocytes 0.5 % (0-0.5); % Lymphocytes 5.7 % (20.5-51.1); % Neutrophils 86.5 % (42.2-75.2); Absolute Immature Granulocytes 0.1 10^3/uL (0-0.05); Absolute Lymphocytes 0.6 10^3/uL (1.2-3.4); Absolute Monocytes 0.8 10^3/uL (0.1-0.6); Absolute Neutrophils 9.4 10^3/uL (1.4-6.5); Hematocrit 34.4 % (39.0-52.0); Hemoglobin 11.7 g/dL (13.0-18.0); Mean Corpuscular Hgb 30.6 pg (27.0-31.0); Mean Corpuscular Volume 90.1 fL (80.0-94.0); Mean Platelet Volume 9.2 fL (7.4-10.4); Nucleated Red Blood Cells % 0 % (-); Platelet Count 386 10^3/uL (130-400); Red Blood Cell Count 3.82 10^6/uL (4.70-6.10); Red Cell Dist. Width 14.9 % (11.5-14.5); White Blood Cell Count 10.9 10^3/uL (4.8-10.8)
[2023-09-07] MEDS: ROXICODONE 5 MG PO (14:31)
[2023-09-07 14:39] LABS: ALT (SGPT) 21 U/L (0-50); AST (SGOT) 28 U/L (17-59); Albumin 3.4 g/dl (3.5-5.0); Alkaline Phosphatase 114 U/L (38-126); Blood Urea Nitrogen 17 mg/dl (9-20); Calcium 8.8 mg/dl (8.4-10.2); Carbon Dioxide 23 mmol/L (22-30); Chloride 94 mmol/L (98-107); Estimated Creatinine Clearance 67 ml/min; Glucose 152 mg/dl (70-99); Potassium 4.3 mmol/L (3.5-5.1); Sodium 128 mmol/L (135-145); Total Protein 6.4 g/dl (6.3-8.2); eGFR > 60.00
[2023-09-07] MEDS: NSS 1000 IV (15:41)
[2023-09-07 16:20] LABS: Urine Albumin Trace (Neg - Trace); Urine Bilirubin Negative (Negative); Urine Character Clear (Clear); Urine Color Yellow; Urine Glucose Negative (Negative); Urine Ketone Trace (Negative); Urine Leukocyte Trace (Negative); Urine Nitrite Negative (Negative); Urine Occult Blood Negative (Negative); Urine Specific Gravity 1.025 (<1.030); Urine Urobilinogen 1+ (Neg - 1+)
[2023-09-07 16:27] LABS: Urine Mucus Moderate; Urine Squamous Cell 0-2 /LPF (Few)
[2023-09-07 16:28] LABS: Urine Red Blood Cell 0-2 /HPF (0-2)
[2023-09-07 16:34] LABS: Urine Calcium Oxalate Crystals Present
[2023-09-07 16:35] LABS: Urine Bacteria Moderate (Negative)
[2023-09-07 16:36] LABS: Urine White Cell 0-2 /HPF (0-5)
== END 2023-09-07 17:16 ==
LOC: EMR 12:47
PROVIDERS: Nurse Practitioner; EMERGENCY PHYSICIAN Emergency Medicine
DX: R26.89 Other abnormalities of gait and mobility (principal)
CPT/HCPCS: 99284; 96360; 80053; 81003; 81015; 85025; 87086